=== PATIENT | female | born 1975 | race Caucasian/White ===

== ENCOUNTER 2017-01-21 00:43 | Emergency (ER) | payer MEDICARE ==
[~2017-01-21] VITALS: Ht 160 cm; Wt 59.0 kg
[~2017-01-21 00:43] MED LIST: ACULAR 3 ML3 M1 OP; ANAPROX DS550 MG PO; BACTROBAN2% T; BLOOD PRESSURE; CATAFLAM50 MG PO; CETIRIZINE10 MG PO; CIPRO250 MG PO; FLAGYL500 MG PO; FLEXERIL10 MG PO; FLEXERIL5 MG PO; HYDROCODONE BIT1 T11 PO; MEDROL DOSEPAK4 MG PO; MOTRIN800 MG PO; NORCO 325 MG-51 TAB PO; PARAFON FORTE500 MG PO; PHENERGAN25 M3 PO; PREDNISONE20 M1 PO; PYRIDIUM200 MG PO; TOBREX OPHTH S2.5 ML OPH; VALIUM10 MG PO; VENTOLIN H0.09 MG/AC INH; VIBRA-TAB100 MG PO; ZITHROMAX Z PA250 MG PO
[2017-01-21] MEDS ORDERED: ROBITUSSIN AC 110 ML PO (00:45)
[2017-01-21] MEDS ORDERED: ANAPROX DS550 MG PO (00:54)
[2017-01-21] MEDS ORDERED: CLINDAMYCIN HC300 MG PO (00:54)
== END 2017-01-21 01:06 | disposition home or self-care (01) ==
LOC: ED 00:43
DX: K08.89 Other specified disorders of teeth and supporting structures (principal); F17.200 Nicotine dependence, unspecified, uncomplicated; Z88.6 Allergy status to analgesic agent; Z88.8 Allergy status to other drugs, medicaments and biological substances

== ENCOUNTER → 2017-09-08 | Outpatient (CLI) | payer MEDICARE ==
[~2017-09-08] MED LIST changes: +CLINDAMYCIN HC300 MG PO; +ROBITUSSIN AC 110 ML PO
== END | disposition home or self-care (01) ==
LOC: US 11:00
DX: D25.2 Subserosal leiomyoma of uterus (principal); R10.2 Pelvic and perineal pain

== ENCOUNTER 2018-02-03 10:08 | Emergency (ER) | payer MEDICARE ==
[~2018-02-03] VITALS: Ht 160 cm; Wt 54.4 kg
[~2018-02-03 10:08] MED LIST changes: +PEPCID20 MG PO
== END 2018-02-03 13:10 | disposition home or self-care (01) ==
LOC: ED 10:08
DX: T14.8XXA Other injury of unspecified body region, initial encounter (principal); M25.512 Pain in left shoulder; M25.552 Pain in left hip; M54.9 Dorsalgia, unspecified; Z88.6 Allergy status to analgesic agent; Z88.8 Allergy status to other drugs, medicaments and biological substances; Z98.890 Other specified postprocedural states; W17.89XA Other fall from one level to another, initial encounter; Y93.89 Activity, other specified; Y92.89 Other specified places as the place of occurrence of the external cause; Y99.8 Other external cause status

== ENCOUNTER → 2018-07-15 | Outpatient (CLI) | payer MEDICARE ==
[~2018-07-15] MED LIST changes: +Motrin,Rufen800 MG PO; +NORCO 5-325 TA1 EACH PO; +SINGULAIR10 M1 PO; +ZESTORETIC 10-1 EACH PO
== END | disposition home or self-care (01) ==
LOC: US 13:18
DX: R10.2 Pelvic and perineal pain (principal)

== ENCOUNTER 2019-03-04 21:31 | Emergency (ER) | payer MEDICARE ==
[~2019-03-04] VITALS: Ht 160 cm; Wt 54.0 kg
[2019-03-04 21:55] LABS: BILIRUBIN NEGATIVE (NEGATIVE); BLOOD NEGATIVE (NEGATIVE); CLARITY CLEAR (CLEAR); COLOR YELLOW (YELLOW); GLUCOSE NEGATIVE (NEGATIVE); KETONE NEGATIVE (NEGATIVE); LEUKO ESTERASE NEGATIVE (NEGATIVE); NITRITE NEGATIVE (NEGATIVE); PH 5.5 (5.0-9.0); SPECIFIC GRAVITY 1.015 (1.005-1.030); UROBILINOGEN 0.2 E.U./dl (0.2-1.0)
[2019-03-04 22:05] LABS: BACTERIA TRACE; RBC 0-2 rbc/hpf (0-2); WBC 0-2 wbc/hpf (0-5)
[2019-03-04 22:47] LABS: HEMATOCRIT 43.3 % (37.0-47.0); HEMOGLOBIN 14.2 g/dl (12.0-16.0); MEAN CELL VOLUME 97.5 fl (81.0-99.0); MEAN CORPUSCULAR HGB CONC 32.8 g/dl (33.0-37.0); MEAN PLATELET VOLUME 8.5 fl (9.6-12.3); PLATELET COUNT AUTOMATED 410 10*3/uL (130-400); RED BLOOD COUNT 4.44 10*6/uL (4.10-5.10); RED CELL DISTRI WIDTH 12.8 % (0-14.5); WHITE BLOOD COUNT 14.5 10*3/uL (4.8-10.8)
[2019-03-04 23:01] LABS: ALBUMIN 3.4 gm/dl (3.1-4.5); ALKALINE PHOSPHATASE 52 U/L (45-117); BUN 5 mg/dl (7-24); CHLORIDE 110 mmol/L (98-107); CREATININE 0.53 mg/dL (0.55-1.02); LIPASE 138 U/L (73-393); POTASSIUM 3.2 mmol/L (3.5-5.1); SGPT/ALT 14 U/L (12-78); SODIUM 140 mmol/L (136-145); TOTAL PROTEIN 6.5 gm/dL (6.4-8.2)
[2019-03-04 23:02] LABS: SGOT/AST < 3 IU/L (3-35)
[2019-03-04 23:09] LABS: ATYPICAL LYMPHS 2 % (0-0); TOTAL CELLS COUNTED 100 #CELLS
[2019-03-04 23:10] LABS: PLATELET SUFFICIENCY NORMAL (NORMAL)
== END 2019-03-04 23:45 | disposition home or self-care (01) ==
LOC: ED 21:31
PROVIDERS: Physician Assistant
DX: R10.32 Left lower quadrant pain (principal); G89.29 Other chronic pain; R11.0 Nausea; F17.200 Nicotine dependence, unspecified, uncomplicated; Z88.6 Allergy status to analgesic agent; Z88.8 Allergy status to other drugs, medicaments and biological substances; Z79.899 Other long term (current) drug therapy

== ENCOUNTER 2019-07-08 08:06 | Emergency (ER) | payer MEDICARE ==
[~2019-07-08] VITALS: Ht 160 cm; Wt 54.4 kg
[2019-07-08] MEDS ORDERED: CYCLOBENZAPRINE10 MG PO (09:00)
[2019-07-08] MEDS ORDERED: TYLENOL325 M1 PO (09:00)
[2019-07-08] MEDS ORDERED: NAPROSYN500 MG PO (09:00)
[2019-07-08] MEDS ORDERED: CELECOXIB200 M1 PO (10:01)
== END 2019-07-08 10:00 | disposition home or self-care (01) ==
LOC: ED 08:06
DX: M54.5 Low back pain (principal); F17.210 Nicotine dependence, cigarettes, uncomplicated; Z88.6 Allergy status to analgesic agent; Z88.8 Allergy status to other drugs, medicaments and biological substances; Z79.899 Other long term (current) drug therapy

== ENCOUNTER → 2019-10-14 | Outpatient (CLI) | payer MEDICARE ==
[~2019-10-14] MED LIST changes: +CELECOXIB200 M1 PO; +CYCLOBENZAPRINE10 MG PO; +NAPROSYN500 MG PO; +TYLENOL325 M1 PO
== END | disposition home or self-care (01) ==
LOC: RAD 13:11
DX: M47.817 Spondylosis without myelopathy or radiculopathy, lumbosacral region (principal); M54.41 Lumbago with sciatica, right side

== ENCOUNTER 2019-12-06 18:34 | Inpatient (IN) | payer MEDICARE ==
[~2019-12-06] VITALS: Ht 160 cm; Wt 59.4 kg
[2019-12-06 18:45] VITALS: BP 114/64
[2019-12-06 19:48] LABS: CLARITY CLEAR (CLEAR); COLOR STRAW (YELLOW)
[2019-12-06 19:49] LABS: BILIRUBIN NEGATIVE (NEGATIVE); BLOOD NEGATIVE (NEGATIVE); GLUCOSE NEGATIVE (NEGATIVE); KETONE NEGATIVE (NEGATIVE); NITRITE NEGATIVE (NEGATIVE); UROBILINOGEN 0.2 E.U./dl (0.2-1.0)
[2019-12-06 19:51] LABS: LEUKO ESTERASE 1+ (NEGATIVE)
[2019-12-06 19:55] LABS: BACTERIA TRACE
[2019-12-06 20:00] LABS: BASO # 0.1 10*3/uL (0.0-0.1); BASO % 0.6 % (0.0-1.0); EOS # 0.4 10*3/uL (0.0-0.4); EOS % 3.7 % (1.0-4.0); HEMATOCRIT 39.2 % (37.0-47.0); LYMPH # 3.8 10*3/uL (1.3-4.4); LYMPH % 32.6 % (27.0-41.0); MEAN CELL VOLUME 93.8 fl (81.0-99.0); MEAN CORPUSCULAR HGB 32.1 pg (27.0-31.0); MEAN CORPUSCULAR HGB CONC 34.2 g/dl (33.0-37.0); MEAN PLATELET VOLUME 8.2 fl (9.6-12.3); MONO # 0.6 10*3/uL (0.1-1.0); MONO % 5.1 % (3.0-9.0); NEUT # 6.7 10*3/uL (2.3-7.9); NEUT % 57.7 % (47.0-73.0); PLATELET COUNT AUTOMATED 459 10*3/uL (130-400); RED BLOOD COUNT 4.18 10*6/uL (4.10-5.10); WHITE BLOOD COUNT 11.7 10*3/uL (4.8-10.8)
[2019-12-06 20:14] LABS: ALBUMIN 3.6 gm/dl (3.1-4.5); ALKALINE PHOSPHATASE 53 U/L (45-117); BUN 2 mg/dl (7-24); CHLORIDE 111 mmol/L (98-107); CREATININE 0.51 mg/dL (0.55-1.02); LIPASE 237 U/L (73-393); POTASSIUM 3.2 mmol/L (3.5-5.1); SGOT/AST 6 IU/L (3-35); SGPT/ALT 16 U/L (12-78); SODIUM 140 mmol/L (136-145); TOTAL PROTEIN 6.7 gm/dL (6.4-8.2)
--- NOTE | 2019-12-06 20:55 | NUR ---
PATIENT IN BED AWAKE AND ALERT AT THIS TIME. NO ACUTE DISTRESS NOTED. PATIENT INFORMED WE ARE WAITING ON MED RECORDS FROM [place]. RN WILL CONT TO MONITOR
--- NOTE | 2019-12-06 21:35 | NUR ---
PATIENT IN BED AWAKE AND ALERT AT THIS TIME. NO ACUTE DISTRESS NOTED. RESP EASY AND NONLABORED. RN WILL CONT TO MONITOR. [facility]AD[facility] FAXING RECORDS NOW
[2019-12-06 23:15] VITALS: BP 104/64
[2019-12-07] VITALS: BP 121/57
--- NOTE | 2019-12-07 | NUR ---
A 44, admitted to 5E, under the services of INDER Dolan MD with a diagnosis of ENTERITIS. Chief complaint is ABDOMINAL PAIN. Patient arrived via ambulatory from ER. Monitor applied. Initial assessment completed. Vital signs taken and recorded. INDER DOLAN MD notified of admission to the unit. Orders received. See assessment for past medical history, medications and allergies. Patient and/or family oriented [facility]. visitation policy reviewed. Clothing/patient valuable form completed. LENORA YOUSSEF RN
[2019-12-07] MEDS ORDERED: ZOLPIDEM10 MG PO (00:09)
--- NOTE | 2019-12-07 00:29 | NUR ---
ONE TIME DOSE OF IV MORPHINE GIVEN AT THIS TIME PER ORDERS FROM ER. PATIENT COMPLAINING OF 7/10 PAIN IN HER MIDEPIGASTRIC REGION WHICH STARTED THIS PAST FRIDAY. A&O X3, CALL LIGHT WITHIN REACH. WILL CONTINUE TO MONITOR.
--- NOTE | 2019-12-07 01:54 | NUR ---
PATIENT STATED THE IV POTASSIUM WAS HURTING HER ARM TOO BAD. IV POTASSIUM RUNNING WITH NORMAL SALINE AND POTASSIUM WAS SLOWED DOWN. PATIENT STILL SAID IT WAS HURTING TOO BAD. PATIENT STATED "BURNING DOESN'T EVEN JUSTIFY IT. ITS A PAIN FEELING". PATIENT REQUESTED PO POTASSIUM AND STATED SHE TOOK PO POTASSIUM AT [facility] LAST WEEK. NOTIFIED DR CABRERA. HE STATED PATIENT IS NPO RIGHT NOW AND HE DOESN'T WANT HER TO GET SICK WHEN TAKING PO POTASSIUM SO HE GAVE ORDERS FOR 40 OF K-DUR IN THE MORNING AFTER THE PATIENT EATS. NOTIFIED PATIENT'S CURRENT NURSE, MIKAELA Bautista IV POTASSIUM STOPPED. NORMAL SALINE RUNNING AT 100 ML/HR. PATIENT'S IV FLUSHED. SHE STATED IT FEELS BETTER NOW. CALL LIGHT WITHIN REACH. WILL CONTINUE TO MONITOR.
[2019-12-07 06:25] LABS: BASO # 0.1 10*3/uL (0.0-0.1); BASO % 0.7 % (0.0-1.0); EOS # 0.5 10*3/uL (0.0-0.4); HEMATOCRIT 38.8 % (37.0-47.0); LYMPH # 4.7 10*3/uL (1.3-4.4); LYMPH % 38.8 % (27.0-41.0); MEAN CELL VOLUME 95.8 fl (81.0-99.0); MEAN CORPUSCULAR HGB 31.6 pg (27.0-31.0); MEAN PLATELET VOLUME 8.4 fl (9.6-12.3); MONO # 0.7 10*3/uL (0.1-1.0); MONO % 5.5 % (3.0-9.0); NEUT # 6.2 10*3/uL (2.3-7.9); NEUT % 50.7 % (47.0-73.0); PLATELET COUNT AUTOMATED 437 10*3/uL (130-400); RED BLOOD COUNT 4.05 10*6/uL (4.10-5.10); WHITE BLOOD COUNT 12.1 10*3/uL (4.8-10.8)
[2019-12-07 06:53] LABS: ALBUMIN 3.3 gm/dl (3.1-4.5); BUN 4 mg/dl (7-24); CHLORIDE 109 mmol/L (98-107); CREATININE 0.44 mg/dL (0.55-1.02); POTASSIUM 2.8 mmol/L (3.5-5.1); SGOT/AST 7 IU/L (3-35); SGPT/ALT 13 U/L (12-78); SODIUM 141 mmol/L (136-145)
[2019-12-07 06:55] LABS: ALKALINE PHOSPHATASE 48 U/L (45-117); TOTAL PROTEIN 6.1 gm/dL (6.4-8.2)
[2019-12-07 08:00] VITALS: BP 109/51
--- NOTE | 2019-12-07 09:00 | NUR ---
Looping Inspector in to talk to patient. Patient states lives at home with her daughter. There are 15-20 steps in the home. Physician: Dr. Joshua Liz Pharmacy: [facility] Home health services: none Patient's level of ADLs: INDEPENDENT Patient has working utilities: yes DME: none Follow-up physician's appointment after d/c: she prefers to make her own follow up appt after discharge Does patient want to access PORTAL?: no Discharge plan discussed with patient. She is walking back from the bathroom to her bed. She states she lives at home with her daughter. She is independent in her ADLs and ambulation. Discussed home health care services and she denies any home needs at this time. When medically stable she will be discharged to home. She states either her daughter or Raymundo will provide transportation on discharge. GAGE JAMES
[2019-12-07 12:00] VITALS: BP 99/59
[2019-12-07 16:00] VITALS: BP 101/49
[2019-12-07 20:00] VITALS: BP 90/60
--- NOTE | 2019-12-07 20:15 | NUR ---
IN TO ASSES PATIENT. PATIENT ALERT AND ORIENTED AND COOPERTIVE. PATIENT STATES SHE HAS ABDOMINAL PAIN THAT IS ACTUALLY BETTER THAN WHEN SHE FIRST CAME IN. SHE STATES THE PAIN INITIALLY FELT HOW SHE FELT WHEN SHE HAD A BOWEL OBSTRUCTION. BUT THAT THE PAIN IS SOMEWHAT BETTER. SHE DENIES N/V/D/C AND IS MOVING HER BOWELS REGULARLY. BREATHING IS EASY AND REGULAR ON ROOM AIR. NO EDEMA NOTED. DENIES CP/SOB. IV FLUIDS INFUSING PER ORDER. CALL LIGHT WITHIN REACH, WILL MONITOR
[2019-12-07 21:40] VITALS: BP 92/58
--- NOTE | 2019-12-07 21:40 | NUR ---
RECHECKED PATIENTS BLOOD PRESSURE AT THIS TIME BEFORE ADMINISTERING MORPHINE. PATIENTS BLOOD PRESSURE IS 92/58. PATIENT ASYMPTOMATIC AND DENIES DIZZYNESS AND LIGHTHEADEDNESS. NOTIFIED DR. SAHA OF PATIENTS BLOOD PRESSURE BUT THAT PATIENT APPEARS TO BE IN A DECENT AMOUNT OF PAIN IN HER STOMACH. DR. SAHA STATED TO GO AHEAD AND GIVE HER THE MORPHINE AND THEN BOLUS THE REST OF HER BAG OF SALINE (600ML). THEN RECHECK HER BLOOD PRESSURE.
--- NOTE | 2019-12-07 21:48 | NUR ---
PRN MORPHINE GIVEN FOR PT COMPLAINTS OF 9/10 ABDOMINAL PAIN. CALL LIGHT WITHIN REACH, WILL MONITOR
--- NOTE | 2019-12-07 22:30 | NUR ---
PRN MORPHINE EFFECTIVE PER PT
[2019-12-08] VITALS: BP 116/70
--- NOTE | 2019-12-08 00:08 | NUR ---
BLOOD PRESSURE RECHECKED AT THIS TIME. 116/70. CALL LIGHT WITHIN REACH, WILL MONITOR
--- NOTE | 2019-12-08 00:11 | NUR ---
NOTIFIED DR. CABRERA OF PATIENTS RECHECK AT THIS TIME
--- NOTE | 2019-12-08 02:43 | NUR ---
24 HR chart check completed.
--- NOTE | 2019-12-08 02:53 | NUR ---
PATIENT SLEEPING. NO DISTRESS NOTED. BREATHING IS EASY AND REGULAR. IV FLUIDS/ATB CONTINUE TO INFUSE AT THIS TIME
[2019-12-08 07:42] LABS: BUN 7 mg/dl (7-24); CHLORIDE 116 mmol/L (98-107); CREATININE 0.53 mg/dL (0.55-1.02); POTASSIUM 4.4 mmol/L (3.5-5.1); SODIUM 143 mmol/L (136-145)
[2019-12-08 08:00] VITALS: BP 114/50
--- NOTE | 2019-12-08 08:10 | NUR ---
PT MEDICATED WITH NORCO FOR COMPLAINTS OF 6/10 ABD PAIN. WILL MONITOR FOR EFFECTIVENESS.
--- NOTE | 2019-12-08 09:10 | NUR ---
PER PATIENT, PRN NORCO HAS BEEN EFFECTIVE. RELAXED AT THIS TIME.
[2019-12-08 12:00] VITALS: BP 105/65
--- NOTE | 2019-12-08 12:28 | NUR ---
PT C/O 11/25 ABD PAIN AT THIS TIME, MEDICATED KASI REHMAN. WILL MONITOR FOR EFFECTIVENESS.
--- NOTE | 2019-12-08 13:28 | NUR ---
PER PATIENT, PRN MED HAS BEEN EFFECTIVE. RESTING AT THIS TIME.
[2019-12-08 16:00] VITALS: BP 103/51
--- NOTE | 2019-12-08 18:34 | NUR ---
PATIENT MEDICATED WITH IV MORPHINE AT THIS TIME FOR COMPLAINTS OF ABD PAIN 11/25 - WILL MONITOR FOR EFFECTIVENESS.
--- NOTE | 2019-12-08 19:53 | NUR ---
24 HR chart check completed.
[2019-12-08 20:00] VITALS: BP 90/49
--- NOTE | 2019-12-08 20:00 | NUR ---
AMBULATIING IN ROOM WITH NO ACUTE DISTRESS NOTED. RESPIRATIONS EASY. LUNGS DIMINISHED WITH SCATTERED WHEEZES. PULSE OX 97% RA. ABD SOFT WITH HYPERACTIVE BOWEL SOUNDS. C/O LOOSE STOOLS X 6 FOR THE DAY. IV FLUIDS INFUSING PER ORDER. CALL LIGHT WITHIN REACH. NO VOICED COMPLAINTS.
--- NOTE | 2019-12-08 21:28 | NUR ---
REQUESTED AND RECEIVED NORCO PER PRN ORDER FOR COMPLAINTS OF MID ABD SORENESS RATING A 5. CALL LIGHT WITHIN REACH. WILL MONITOR
--- NOTE | 2019-12-08 22:00 | NUR ---
[facility] CALL LIGHT WITHIN REACH. NO FURTHER VOICED COMPLAINTS
[2019-12-09] VITALS: BP 117/75
--- NOTE | 2019-12-09 | NUR ---
SLEEPING. NO DISTRESS NOTED. RESPIRATIONS EASY. VSS. IV FLUIDS INFUSING. CALL LIGHT WITHIN REACH.
[2019-12-09] MEDS ORDERED: DULOXETINE HCL30 MG PO (00:13)
[2019-12-09] MEDS ORDERED: CETIRIZINE HYDR10 MG PO (00:14)
--- NOTE | 2019-12-09 05:26 | NUR ---
UPON AWAKENING FOR AM MEDS, C/O MID ABD SORENESS RATING A 6 - REQUESTED AND RECEIVED MORPHINE PER PRN ORDER. IV FLUIDS MAINTAINED. CALL LIGHT WITHIN REACH. WILL MONITOR
--- NOTE | 2019-12-09 06:15 | NUR ---
MEDS APPEAR EFFECTIVE. SLEEPING. RESPIRATIONS EASY. IV FLUIDS MAINTAINED. CALL LIGHT WITHIN REACH
[2019-12-09 06:47] LABS: BASO # 0.1 10*3/uL (0.0-0.1); BASO % 0.8 % (0.0-1.0); EOS # 0.4 10*3/uL (0.0-0.4); EOS % 3.4 % (1.0-4.0); HEMATOCRIT 35.5 % (37.0-47.0); LYMPH # 4.1 10*3/uL (1.3-4.4); LYMPH % 32.9 % (27.0-41.0); MEAN CELL VOLUME 97.8 fl (81.0-99.0); MEAN CORPUSCULAR HGB CONC 32.7 g/dl (33.0-37.0); MEAN PLATELET VOLUME 8.9 fl (9.6-12.3); MONO # 0.9 10*3/uL (0.1-1.0); MONO % 6.8 % (3.0-9.0); NEUT % 55.8 % (47.0-73.0); PLATELET COUNT AUTOMATED 403 10*3/uL (130-400); RED BLOOD COUNT 3.63 10*6/uL (4.10-5.10); RED CELL DISTRI WIDTH 12.9 % (0-14.5); WHITE BLOOD COUNT 12.5 10*3/uL (4.8-10.8)
[2019-12-09 07:24] LABS: BUN 5 mg/dl (7-24); CHLORIDE 110 mmol/L (98-107); SODIUM 139 mmol/L (136-145)
[2019-12-09 07:25] LABS: CREATININE 0.45 mg/dL (0.55-1.02)
[2019-12-09 08:00] VITALS: BP 128/60
--- NOTE | 2019-12-09 08:13 | NUR ---
PATINT MEDICTED WITH NORCO & ZOFRAN AT THIS TIME FOR COMPLAINTS OF ABD PAIN 7/10 AND NAUSEA. ILL MONITOR FOR EFFECTIVENESS.
--- NOTE | 2019-12-09 09:13 | NUR ---
PER PATIENT, PRN MEDICTION HAS BEEN EFFCTIVE. RESTING AT THIS TIME.
--- NOTE | 2019-12-09 09:30 | NUR ---
Superintendent System Operation in to see patient. No new needs or request at this time. She denies any home needs. When medically stable she will be discharged to home.
--- NOTE | 2019-12-09 11:30 | NUR ---
Discussed discharge planning with Dr. Stephens. Possible discharge today.
[2019-12-09 12:00] VITALS: BP 111/55
[2019-12-09] MEDS ORDERED: Vitamin D (50,000 UN PO (12:11)
[2019-12-09] MEDS ORDERED: CIPRO500 MG PO (12:11)
[2019-12-09] MEDS ORDERED: FLAGYL500 MG PO (12:11)
--- NOTE | 2019-12-09 13:42 | NUR ---
PATINT ADVISED TO STAY FOR TREATMENT BY DUE TO [facility] CONTINUING ABDOMINAL PAIN. PATIENT INSISTS THAT FEELS OK TO BE DISCHARGED. NOTIFIED [facility] TO [facility] AND NOT TO FILL IT. PATIENT'S IV DISCONTINUED & TAKEN OFF FLOOR VIA WHEELCHAIR. Discharge instructions reviewed with patient/family. Patient receptive and verbalizes understanding. Follow-up care arranged. Written instructions given to patient/family. IVY CHAMPAGNE
== END 2019-12-09 13:40 | disposition home or self-care (01) | DRG 373 ==
LOC: ED 18:34 → EDHOLD 22:42 → 5E 22:42
PROVIDERS: Emergency Medicine; Student in an Organized Health Care Education/Training Program; ADMIT Internal Medicine
DX: A04.9 Bacterial intestinal infection, unspecified (principal); M54.5 Low back pain; E87.6 Hypokalemia; F17.210 Nicotine dependence, cigarettes, uncomplicated; F17.220 Nicotine dependence, chewing tobacco, uncomplicated; T37.3X5A Adverse effect of other antiprotozoal drugs, initial encounter; Y92.238 Other place in hospital as the place of occurrence of the external cause; Z71.6 Tobacco abuse counseling; Z88.6 Allergy status to analgesic agent; Z88.8 Allergy status to other drugs, medicaments and biological substances; Z79.899 Other long term (current) drug therapy

== ENCOUNTER → 2020-04-26 | Outpatient (CLI) | payer MEDICARE ==
[~2020-04-26] MED LIST changes: +CETIRIZINE HYDR10 MG PO; +CIPRO500 MG PO; +DULOXETINE HCL30 MG PO; +Vitamin D (50,000 UN PO; +ZOLPIDEM10 MG PO
== END | disposition home or self-care (01) ==
LOC: MAMMO 03-29 14:30
PROVIDERS: ATTEND Internal Medicine
DX: Z12.31 Encounter for screening mammogram for malignant neoplasm of breast (principal)

== ENCOUNTER → 2020-05-03 | Outpatient (CLI) | payer MEDICARE | END | disposition home or self-care (01) | LOC: MAMMO 12:58 | PROVIDERS: ATTEND Internal Medicine | DX: Z12.31 Encounter for screening mammogram for malignant neoplasm of breast (principal); D24.1 Benign neoplasm of right breast ==

== ENCOUNTER → 2020-07-07 | Outpatient (CLI) | payer MEDICARE, MEDICAID | END | disposition home or self-care (01) | LOC: RAD 16:15 | PROVIDERS: ATTEND Internal Medicine | DX: M79.672 Pain in left foot (principal); N76.0 Acute vaginitis ==

== ENCOUNTER → 2020-07-12 | Outpatient (CLI) | payer MEDICARE, MEDICAID | END | disposition home or self-care (01) | LOC: US 11:30 | PROVIDERS: ATTEND Internal Medicine | DX: N13.30 Unspecified hydronephrosis (principal) ==

== ENCOUNTER → 2020-08-07 | Outpatient (CLI) | payer MEDICARE, MEDICAID | END | disposition home or self-care (01) | LOC: RAD 14:06 | PROVIDERS: ATTEND Podiatrist | DX: S99.922A Unspecified injury of left foot, initial encounter (principal); M79.672 Pain in left foot; X58.XXXA Exposure to other specified factors, initial encounter; Y93.89 Activity, other specified; Y92.89 Other specified places as the place of occurrence of the external cause; Y99.8 Other external cause status ==

== ENCOUNTER → 2020-12-05 | Outpatient (CLI) | payer MEDICARE, MEDICAID | END | disposition home or self-care (01) | LOC: MAMMO 11-14 14:00 → US 11-14 14:30 → MAMMO 13:00 | PROVIDERS: ATTEND Internal Medicine | DX: D24.1 Benign neoplasm of right breast (principal) ==

== ENCOUNTER → 2023-08-21 | Outpatient (CLI) | payer MEDICARE, MEDICAID | END | disposition home or self-care (01) | LOC: RAD 14:16 | PROVIDERS: ATTEND Internal Medicine | DX: M25.511 Pain in right shoulder (principal) ==

== ENCOUNTER 2024-10-10 22:17 | Emergency (ER) | payer MEDICARE, MEDICAID ==
[~2024-10-10] VITALS: Ht 160 cm; Wt 61.7 kg
[2024-10-10] MEDS ORDERED: PENICILLIN V POTASSIUM 500 MG TAB PO ONE (22:45)
[2024-10-10] MEDS ORDERED: Ondansetron Hydrochloride 4 MG TAB SL ONE (22:45)
[2024-10-10] MEDS ORDERED: Acetaminophen/Hydrocodone 5 MG/325 MG TABLET PO ONE (22:50)
[2024-10-10] MEDS ORDERED: PENICILLIN VK500 MG PO (22:55)
== END 2024-10-10 23:05 | disposition home or self-care (01) ==
LOC: ED 22:17
DX: K04.7 Periapical abscess without sinus (principal); K02.9 Dental caries, unspecified; K08.89 Other specified disorders of teeth and supporting structures; J45.909 Unspecified asthma, uncomplicated; F32.A Depression, unspecified; F41.9 Anxiety disorder, unspecified; G43.909 Migraine, unspecified, not intractable, without status migrainosus; Z88.6 Allergy status to analgesic agent; Z88.8 Allergy status to other drugs, medicaments and biological substances; Z98.890 Other specified postprocedural states

== ENCOUNTER 2024-10-12 00:15 | Inpatient (IN) | payer MEDICARE, MEDICAID ==
[~2024-10-12] VITALS: Ht 160 cm; Wt 63.7 kg
[~2024-10-12 00:15] MED LIST changes: +PENICILLIN VK500 MG PO
[2024-10-12 00:28] VITALS: BP 126/72
[2024-10-12] MEDS ORDERED: IOHEXOL 300 MG/ML 100 ML VIAL IV ONE (00:40)
[2024-10-12 00:56] LABS: HEMATOCRIT 42.7 % (37.0-47.0); MEAN CORPUSCULAR HGB 32.4 pg (27.0-31.0); MEAN CORPUSCULAR HGB CONC 35.6 g/dl (33.0-37.0); MEAN PLATELET VOLUME 8.3 fl (9.6-12.3); PLATELET COUNT AUTOMATED 477 10*3/uL (130-400); RED BLOOD COUNT 4.69 10*6/uL (4.10-5.10); RED CELL DISTRI WIDTH 13.2 % (0-14.5)
[2024-10-12 00:59] LABS: MANUAL DIFF REFLEX YES
[2024-10-12 01:15] LABS: CHLORIDE 98 mmol/L (98-107); POTASSIUM 2.8 mmol/L (3.4-5.1)
[2024-10-12 01:22] LABS: BASOPHILS 1 % (0-1); PLATELET SUFFICIENCY HIGH (NORMAL); TOTAL CELLS COUNTED 100 #CELLS
[2024-10-12 01:23] LABS: OVALOCYTES FEW
[2024-10-12 01:24] LABS: BUN < 5 mg/dl (9-23)
[2024-10-12] MEDS ORDERED: SODIUM CHLORIDE 0.9% 1,000 ML IV SCH (03:00)
[2024-10-12] MEDS ORDERED: Vancomycin Hydrochloride 250 ML IV ONE (03:00)
[2024-10-12] MEDS ORDERED: Piperacillin Sodium/Tazobact 50 ML IV ONE (03:00)
[2024-10-12] MEDS ORDERED: POTASSIUM CHLORIDE IN WATER 100 ML IV ONE (03:10)
[2024-10-12] MEDS ORDERED: Ketorolac Tromethamine 15 MG/ML VIAL IV ONE (03:30)
[2024-10-12] MEDS ORDERED: Albuterol Sulfate 2.5 MG/3 ML VIAL NEB PRN (03:35)
[2024-10-12] MEDS ORDERED: Ketorolac Tromethamine 15 MG/ML VIAL IV PRN (03:35)
[2024-10-12] MEDS ORDERED: CYCLOBENZAPRINE10 MG PO (03:42)
[2024-10-12 04:13] VITALS: BP 122/74
[2024-10-12] MEDS ORDERED: POTASSIUM CHLORIDE 20 MEQ/15 ML PO ONE (04:20)
[2024-10-12] MEDS ORDERED: POTASSIUM CHLORIDE 20 MEQ TAB PO ONE (05:00)
[2024-10-12 06:43] LABS: HEMATOCRIT 35.6 % (37.0-47.0); MEAN CELL VOLUME 92.5 fl (81.0-99.0); MEAN CORPUSCULAR HGB 31.7 pg (27.0-31.0); MEAN CORPUSCULAR HGB CONC 34.3 g/dl (33.0-37.0); MEAN PLATELET VOLUME 8.1 fl (9.6-12.3); PLATELET COUNT AUTOMATED 408 10*3/uL (130-400); RED BLOOD COUNT 3.85 10*6/uL (4.10-5.10); RED CELL DISTRI WIDTH 13.2 % (0-14.5); WHITE BLOOD COUNT 14.6 10*3/uL (4.8-10.8)
[2024-10-12 06:47] LABS: MANUAL DIFF REFLEX YES
[2024-10-12 07:24] LABS: TOTAL CELLS COUNTED 100 #CELLS
[2024-10-12 07:25] LABS: PLATELET SUFFICIENCY HIGH (NORMAL)
[2024-10-12 07:44] LABS: ALKALINE PHOSPHATASE 56 U/L (46-116); CHLORIDE 104 mmol/L (98-107); POTASSIUM 2.8 mmol/L (3.4-5.1); TOTAL PROTEIN 5.5 gm/dL (6.0-8.0)
[2024-10-12 07:51] VITALS: BP 94/40
[2024-10-12 07:54] LABS: VITAMIN D, 25-HYDROXY 19.1 ng/mL (30-100)
[2024-10-12 08:01] LABS: BUN < 5 mg/dl (9-23); SGPT/ALT < 7 U/L (5-49)
[2024-10-12] MEDS ORDERED: Nicotine 21 MG PATCH T SCH (10:00)
[2024-10-12] MEDS ORDERED: Piperacillin Sodium/Tazobact 50 ML IV SCH (10:00)
[2024-10-12] MEDS ORDERED: Enoxaparin Sodium 40 MG/0.4 ML SYR SC SCH (10:00)
[2024-10-12] MEDS ORDERED: Vancomycin Hydrochloride 750 MG in SODIUM CHLORIDE 0.9% 250 ML IV SCH (14:00)
[2024-10-12 15:07] VITALS: BP 101/48
[2024-10-12 20:30] VITALS: BP 118/47
[2024-10-12] MEDS ORDERED: MUCUS RELIEF600 MG PO (20:55)
[2024-10-12] MEDS ORDERED: BREO ELLIPTA 11 EACH INH (20:56)
[2024-10-12] MEDS ORDERED: VENTOLIN 02.5 MG/3 M INH (20:57)
[2024-10-12] MEDS ORDERED: BREO ELLIPTA INH SCH (21:15)
[2024-10-12] MEDS ORDERED: BUDESONIDE 0.5 MG AMP NEB SCH (21:25)
[2024-10-12] MEDS ORDERED: Albuterol Sulfate 2.5 MG/3 ML VIAL NEB SCH (21:25)
[2024-10-12] MEDS ORDERED: ZOLPIDEM TARTRATE 10 MG TAB PO SCH (22:00)
[2024-10-13] VITALS: BP 112/53
[2024-10-13] MEDS ORDERED: ACETAMINOPHEN 325 MG TAB PO PRN (02:30)
[2024-10-13 06:27] LABS: BASO # 0.1 10*3/uL (0.0-0.1); BASO % 0.7 % (0.0-1.0); EOS # 0.4 10*3/uL (0.0-0.4); EOS % 2.9 % (1.0-4.0); HEMATOCRIT 34.7 % (37.0-47.0); MEAN CELL VOLUME 94.8 fl (81.0-99.0); MEAN CORPUSCULAR HGB 32.2 pg (27.0-31.0); MEAN PLATELET VOLUME 8.7 fl (9.6-12.3); MONO % 7.9 % (3.0-9.0); NEUT # 6.9 10*3/uL (2.3-7.9); NEUT % 57.4 % (47.0-73.0); PLATELET COUNT AUTOMATED 396 10*3/uL (130-400); RED BLOOD COUNT 3.66 10*6/uL (4.10-5.10); RED CELL DISTRI WIDTH 13.3 % (0-14.5); WHITE BLOOD COUNT 12.1 10*3/uL (4.8-10.8)
[2024-10-13 06:32] LABS: BUN 5 mg/dl (9-23); CHLORIDE 103 mmol/L (98-107)
[2024-10-13 08:00] VITALS: BP 83/32
[2024-10-13] MEDS ORDERED: Montelukast Sodium 10 MG TAB PO SCH (10:00)
[2024-10-13] MEDS ORDERED: POTASSIUM CHLORIDE 20 MEQ TAB PO ONE (11:30)
[2024-10-13 12:00] VITALS: BP 110/50
[2024-10-13] MEDS ORDERED: Vancomycin Hydrochloride 750 MG in SODIUM CHLORIDE 0.9% 250 ML IV SCH (12:00)
[2024-10-13 16:00] VITALS: BP 123/62
[2024-10-13 19:56] VITALS: BP 90/36
[2024-10-13 22:00] VITALS: BP 134/82
[2024-10-14] VITALS: BP 130/73
[2024-10-14 05:44] LABS: BUN 5 mg/dl (9-23); CHLORIDE 110 mmol/L (98-107); POTASSIUM 3.6 mmol/L (3.4-5.1)
[2024-10-14 06:26] LABS: BASO # 0.1 10*3/uL (0.0-0.1); BASO % 0.7 % (0.0-1.0); EOS # 0.3 10*3/uL (0.0-0.4); EOS % 2.3 % (1.0-4.0); HEMATOCRIT 33.8 % (37.0-47.0); MEAN CELL VOLUME 95.2 fl (81.0-99.0); MEAN CORPUSCULAR HGB 31.3 pg (27.0-31.0); MEAN CORPUSCULAR HGB CONC 32.8 g/dl (33.0-37.0); MEAN PLATELET VOLUME 8.7 fl (9.6-12.3); NEUT # 10.5 10*3/uL (2.3-7.9); NEUT % 72.5 % (47.0-73.0); PLATELET COUNT AUTOMATED 445 10*3/uL (130-400); RED BLOOD COUNT 3.55 10*6/uL (4.10-5.10); RED CELL DISTRI WIDTH 13.5 % (0-14.5); WHITE BLOOD COUNT 14.5 10*3/uL (4.8-10.8)
[2024-10-14 08:00] VITALS: BP 112/72
[2024-10-14] MEDS ORDERED: Vancomycin Hydrochloride 1,000 MG in SODIUM CHLORIDE 0.9% 250 ML IV SCH (08:00)
[2024-10-14 12:00] VITALS: BP 116/69
[2024-10-14 16:00] VITALS: BP 121/66
[2024-10-14] MEDS ORDERED: Ondansetron Hydrochloride 4 MG/2 ML VIAL IV ONE (18:40)
[2024-10-14 20:00] VITALS: BP 118/55
[2024-10-14] MEDS ORDERED: Cyclobenzaprine Hydrochlorid 10 MG TAB PO PRN (20:40)
[2024-10-14] MEDS ORDERED: CALAMINE T SCH (23:00)
[2024-10-14] MEDS ORDERED: PRAMOXINE T SCH (23:00)
[2024-10-14] MEDS ORDERED: Cetirizine Hydrochloride 10 MG TAB PO ONE (23:05)
[2024-10-15] VITALS: BP 124/66
[2024-10-15 08:00] VITALS: BP 118/48; BP 118/49
[2024-10-15] MEDS ORDERED: Vancomycin Hydrochloride 1,000 MG in SODIUM CHLORIDE 0.9% 250 ML IV SCH (10:00)
[2024-10-15] MEDS ORDERED: HYDROCHLOROTH12.5 M2 PO (11:02)
== END 2024-10-15 12:30 | disposition home or self-care (01) | DRG 872 ==
LOC: ED 00:15 → EDHOLD 03:10 → 4E 19:35
PROVIDERS: Internal Medicine; Student in an Organized Health Care Education/Training Program; ADMIT Internal Medicine; ATTEND Internal Medicine
DX: A41.9 Sepsis, unspecified organism (principal); L03.211 Cellulitis of face; K02.9 Dental caries, unspecified; J44.9 Chronic obstructive pulmonary disease, unspecified; E87.6 Hypokalemia; F17.210 Nicotine dependence, cigarettes, uncomplicated; K08.89 Other specified disorders of teeth and supporting structures; G47.00 Insomnia, unspecified; M79.7 Fibromyalgia; J02.9 Acute pharyngitis, unspecified; I10 Essential (primary) hypertension; R59.1 Generalized enlarged lymph nodes; Z88.8 Allergy status to other drugs, medicaments and biological substances; Z91.09 Other allergy status, other than to drugs and biological substances; Z79.899 Other long term (current) drug therapy; Z79.01 Long term (current) use of anticoagulants; Z79.2 Long term (current) use of antibiotics; Z83.3 Family history of diabetes mellitus; Z82.49 Family history of ischemic heart disease and other diseases of the circulatory system; Z90.710 Acquired absence of both cervix and uterus; Z80.8 Family history of malignant neoplasm of other organs or systems; Z71.6 Tobacco abuse counseling

== ENCOUNTER 2024-11-20 19:22 | Emergency (ER) | payer MEDICARE, MEDICAID ==
[~2024-11-20] VITALS: Ht 160 cm; Wt 59.0 kg
[~2024-11-20 19:22] MED LIST changes: +BREO ELLIPTA 11 EACH INH; +HYDROCHLOROTH12.5 M2 PO; +MUCUS RELIEF600 MG PO; +VENTOLIN 02.5 MG/3 M INH
[2024-11-20] MEDS ORDERED: Bacitracin Zinc 14 GM TUBE T ONE (20:05)
[2024-11-20] MEDS ORDERED: Tdap Vaccine 0.5 ML SYR (Adult Vaccine) IM ONE (20:05)
[2024-11-20] MEDS ORDERED: Acetaminophen/Hydrocodone 5 MG/325 MG TABLET PO ONE (20:05)
[2024-11-20] MEDS ORDERED: HYDROCODONE-AC1 EAC1 PO (23:11)
== END 2024-11-20 23:25 | disposition home or self-care (01) ==
LOC: ED 19:22
DX: S92.102A Unspecified fracture of left talus, initial encounter for closed fracture (principal); S93.401A Sprain of unspecified ligament of right ankle, initial encounter; J44.9 Chronic obstructive pulmonary disease, unspecified; M79.7 Fibromyalgia; F32.A Depression, unspecified; F41.9 Anxiety disorder, unspecified; G89.29 Other chronic pain; Z87.42 Personal history of other diseases of the female genital tract; Z88.6 Allergy status to analgesic agent; Z88.8 Allergy status to other drugs, medicaments and biological substances; Z79.899 Other long term (current) drug therapy; Z90.711 Acquired absence of uterus with remaining cervical stump; Z98.890 Other specified postprocedural states; Z87.891 Personal history of nicotine dependence; W01.0XXA Fall on same level from slipping, tripping and stumbling without subsequent striking against object, initial encounter; Y93.01 Activity, walking, marching and hiking; Y92.480 Sidewalk as the place of occurrence of the external cause; Y99.8 Other external cause status

== ENCOUNTER → 2024-11-27 | Outpatient (CLI) | payer MEDICARE, MEDICAID ==
[~2024-11-27] MED LIST changes: +HYDROCODONE-AC1 EAC1 PO
== END | disposition home or self-care (01) ==
LOC: CT 09:44
PROVIDERS: ATTEND Orthopaedic Surgery
DX: M77.32 Calcaneal spur, left foot (principal); M25.872 Other specified joint disorders, left ankle and foot; M79.672 Pain in left foot; M79.671 Pain in right foot